=== PATIENT | female | born 1960 | race Caucasian/White ===

== ENCOUNTER 2021-06-05 08:03 | Day surgery (SDC) | payer BC ==
[2021-06-05] MEDS ORDERED: Propofol 200 MG/20 ML SDV ONE (08:26)
[2021-06-05] MEDS ORDERED: fentaNYL 100 MCG/2 ML SDV ONE (08:27)
[2021-06-05] MEDS ORDERED: Midazolam 1 MG/ML 2 ML SDV ONE (08:27)
[2021-06-05] MEDS ORDERED: Sodium Chloride 0.9% 1,000 ML IV SCH (09:30)
== END 2021-06-05 11:06 | disposition home or self-care (01) ==
LOC: JP.SDS 08:03
PROVIDERS: ATTEND Surgery
DX: Z12.11 Encounter for screening for malignant neoplasm of colon (principal); K62.1 Rectal polyp; K57.30 Diverticulosis of large intestine without perforation or abscess without bleeding
CPT/HCPCS: J2250; J2704; J3010; J7030